=== PATIENT | male | born 1940 | race Caucasian/White ===

== ENCOUNTER 2017-11-13 15:45 | Inpatient (IN) | payer MEDICARE, OTHER ==
[~2017-11-13] VITALS: Ht 180.3 cm; Wt 102.7 kg
[2017-11-13] VITALS (7 sets, daily range): BP systolic 146–171; BP diastolic 80–86
[2017-11-13 16:39] LABS: URINE BILIRUBIN - DIPSTICK NEGATIVE (NEGATIVE); URINE BLOOD DIPSTICK LARGE (NEGATIVE); URINE GLUCOSE - DIPSTICK 250 mg/dL (NEGATIVE); URINE KETONE 40 mg/dL (NEGATIVE); URINE PROTEIN - DIPSTICK >=300 mg/dL (NEG-TRACE); URINE UROBILINOGEN - DIPSTICK >=8.0 E.U./dL (0.2)
[2017-11-13 16:41] LABS: URINE CLARITY TURBID; URINE COLOR BLOODY; URINE LEUK ESTERASE LARGE (NEGATIVE); URINE NITRITE - DIPSTICK POSITIVE (Negative)
[2017-11-13 16:43] LABS: URINE RBC TNTC RBC/hpf (0-5)
[2017-11-13] MEDS ORDERED: K-DUR/KLOR-CON20 MEQ PO (18:22)
[2017-11-13] MEDS ORDERED: AMLODIPINE10 MG PO (18:23)
[2017-11-13] MEDS ORDERED: OMEPRAZOLE20 M1 PO (18:23)
[2017-11-13] MEDS ORDERED: JANUVIA100 MG PO (18:24)
[2017-11-13] MEDS ORDERED: HYDROCHLOROT25 MG PO (18:24)
[2017-11-13] MEDS ORDERED: PLAVIX75 MG PO (18:24)
[2017-11-13] MEDS ORDERED: ADLT ASA LOW81 MG PO (18:24)
[2017-11-13] MEDS ORDERED: ATORVASTATIN CA40 MG PO (18:25)
[2017-11-13] MEDS ORDERED: [UNRECOGNIZED DRUG - REMARK] PO (18:25)
[2017-11-13] MEDS ORDERED: COZAAR100 MG PO (18:26)
[2017-11-13] MEDS ORDERED: VITAMIN D5000 UNIT PO (18:27)
[2017-11-13] MEDS ORDERED: TAMSULOSIN0.4 MG PO (18:27)
[2017-11-13 18:28] LABS: HEMATOCRIT 37.4 % (39.0-50.0); IMMATURE GRANULOCYTES 0.6 % (0.0-1.0); MEAN CELL VOLUME 91.4 fL CALC (80.0-100.0); MEAN CORPUSCULAR HGB 31.8 pG CALC (26.0-32.0); MEAN CORPUSCULAR HGB CONC 34.8 g/L CALC (32.0-36.0); NEUT# 4.32 thou/uL (1.82-7.42); RED BLOOD COUNT 4.09 mill/uL (4.70-6.10); RED CELL DISTRI WIDTH 13.6 % (11.5-15.5)
[2017-11-13 18:35] LABS: PROTHROMBIN TIME 10.6 SECONDS (9.0-12.5)
[2017-11-13 18:38] LABS: BILIRUBIN, TOTAL 0.6 mg/dL (0.0-1.4); CREATININE 1.4 mg/dL (0.7-1.3); POTASSIUM 4.1 mmol/l (3.5-5.1); TOTAL PROTEIN 6.9 g/dL (6.3-8.2)
[2017-11-14 00:45] VITALS: BP 151/83
[2017-11-14 02:00] VITALS: BP 148/78
[2017-11-14 04:00] VITALS: BP 149/79
[2017-11-14 08:00] VITALS: BP 144/77
[2017-11-14 12:00] VITALS: BP 162/95
[2017-11-14] MEDS ORDERED: SURFAK240 MG/CAP PO (12:28)
[2017-11-14] MEDS ORDERED: PHENAZOPYRID100 MG PO (12:28)
[2017-11-14] MEDS ORDERED: BACTRIM DS1 TAB PO (12:29)
== END 2017-11-14 13:05 | disposition home health service (06) | DRG 664 ==
LOC: ED 15:45 → ED-I 18:22 → ED 19:50 → ICU 21:15
PROVIDERS: Family Medicine; ADMIT Internal Medicine Geriatric Medicine; ATTEND Internal Medicine Geriatric Medicine
PROC: 0T7D8ZZ Dilation of Urethra, Via Natural or Artificial Opening Endoscopic (ICD-10-PCS; principal; 2017-11-14)
PROC: 0W3R8ZZ Control Bleeding in Genitourinary Tract, Via Natural or Artificial Opening Endoscopic (ICD-10-PCS; 2017-11-14)
PROC: 0TCB8ZZ Extirpation of Matter from Bladder, Via Natural or Artificial Opening Endoscopic (ICD-10-PCS; 2017-11-14)
DX: N35.9 Urethral stricture, unspecified (principal); E11.9 Type 2 diabetes mellitus without complications; R31.0 Gross hematuria; N32.0 Bladder-neck obstruction; I11.9 Hypertensive heart disease without heart failure; I78.1 Nevus, non-neoplastic; N32.89 Other specified disorders of bladder; Z85.46 Personal history of malignant neoplasm of prostate; Z92.3 Personal history of irradiation; Z95.5 Presence of coronary angioplasty implant and graft; Z79.02 Long term (current) use of antithrombotics/antiplatelets; Z79.82 Long term (current) use of aspirin
CPT/HCPCS: J1956; Q9967

== ENCOUNTER 2017-12-04 12:46 | Emergency (ER) | payer MEDICARE, OTHER ==
[~2017-12-04] VITALS: Ht 180.3 cm; Wt 101.0 kg
[~2017-12-04 12:46] MED LIST: ADLT ASA LOW81 MG PO; AMLODIPINE10 MG PO; ATORVASTATIN CA40 MG PO; BACTRIM DS1 TAB PO; COZAAR100 MG PO; HYDROCHLOROT25 MG PO; JANUVIA100 MG PO; K-DUR/KLOR-CON20 MEQ PO; OMEPRAZOLE20 M1 PO; PHENAZOPYRID100 MG PO; PLAVIX75 MG PO; SURFAK240 MG/CAP PO; TAMSULOSIN0.4 MG PO; VITAMIN D5000 UNIT PO; [UNRECOGNIZED DRUG - REMARK] PO
[2017-12-04 13:29] LABS: IMMATURE GRANULOCYTES 1.5 % (0.0-1.0); MEAN CELL VOLUME 94.9 fL CALC (80.0-100.0); MEAN CORPUSCULAR HGB 30.9 pG CALC (26.0-32.0); MEAN CORPUSCULAR HGB CONC 32.5 g/L CALC (32.0-36.0); NEUT# 3.63 thou/uL (1.82-7.42); RED BLOOD COUNT 1.78 mill/uL (4.70-6.10); RED CELL DISTRI WIDTH 14.4 % (11.5-15.5)
[2017-12-04 13:31] LABS: HEMATOCRIT 16.9 % (39.0-50.0); HEMOGLOBIN 5.5 g/dl (14.0-18.0)
[2017-12-04 13:44] LABS: POTASSIUM 4.5 mmol/l (3.5-5.1)
[2017-12-04 13:45] LABS: PROTHROMBIN TIME 10.7 SECONDS (9.0-12.5)
[2017-12-04 14:34] VITALS: BP 137/68
[2017-12-04 14:39] VITALS: BP 138/71
[2017-12-04 14:39] LABS: ALBUMIN 3.3 g/dL (3.2-5.0); BILIRUBIN, TOTAL 0.4 mg/dL (0.0-1.4); TOTAL PROTEIN 5.8 g/dL (6.3-8.2)
[2017-12-04 15:00] VITALS: BP 142/76
[2017-12-04] MEDS ORDERED: ASPIRIN81 MG PO (15:20)
[2017-12-04 15:21] VITALS: BP 143/77
[2017-12-04 15:56] VITALS: BP 140/74
[2017-12-04 16:40] VITALS: BP 140/74
== END 2017-12-04 16:40 | disposition short-term general hospital (02) ==
LOC: ED 12:46
PROVIDERS: Family Medicine
PROC: 30233N1 Transfusion of Nonautologous Red Blood Cells into Peripheral Vein, Percutaneous Approach (ICD-10-PCS; principal; 2017-12-04)
PROC: 30233N1 Transfusion of Nonautologous Red Blood Cells into Peripheral Vein, Percutaneous Approach (ICD-10-PCS; 2017-12-04)
DX: D64.9 Anemia, unspecified (principal); R31.9 Hematuria, unspecified; R19.5 Other fecal abnormalities; I10 Essential (primary) hypertension; E11.9 Type 2 diabetes mellitus without complications; Z95.5 Presence of coronary angioplasty implant and graft; Z85.46 Personal history of malignant neoplasm of prostate
CPT/HCPCS: P9016; S0164